=== PATIENT | male | born 1975 | race Caucasian/White ===

== ENCOUNTER 2025-08-14 06:49 | Observation (INO) ==
[2025-08-14] MEDS: APRESOLINE INJ 20 MG VIAL IVP ONE (07:14)
[2025-08-14] MEDS: NS 500 ML IV 500 ML IV ONE (07:24)
[2025-08-14] MEDS: PROTONIX INJ 40 MG VIAL IVP ONE (07:24)
[2025-08-14] MEDS: ZOFRAN INJ 4 MG VIAL IVP ONE (07:24)
[2025-08-14 07:25] LABS: MEAN PLATELET VOLUME 8.6 fL (7.4-11.0); RED CELL DISTRIBUTION WIDTH 13.4 % (11.6-16.5)
[2025-08-14 07:34] LABS: BAND NEUTROPHILS % 1 % (0-10); COR NA(FOR HYPERGLY) 141 mmol/L (136-145); CREATININE 1.46 mg/dL (0.70-1.30); PLATELET MORPHOLOGY COMMENT NORMAL (NORMAL); eGFR NON BLACK RACES 54 (>60)
[2025-08-14] MEDS: LEVSIN/MAALOX/LIDOC VISC PO ONE (07:55)
--- NOTE | 2025-08-14 08:35 | CT ---
EXAMINATION: ABDOMEN/PELVIS W/O CON HISTORY: abd pain; COMPARISON: None. TECHNIQUE: Contiguou s noncontrast axial CT images of the abdomen and pelvis. Images reviewed in the axial imaging plane with reformatted sagittal and coronal images.The above CT scan was done with automated exposure control and the mA and kV was adjusted to obtain quality images according to patient size. FINDINGS: Details of the organs are limited since intravenous contrast was not used. The liver measures 19 by 20 by 20 cm. There is diffuse fatty infiltration liver having density measurements of 34 Hounsfield units. Mild distention of the gallbladder. No bile duct dilatation. Pancreas, spleen, adrenal glands appear intact. The abdominal aorta tapers normally. The left kidney is markedly atrophic. Right kidney is normal size. No hydronephrosis. There is a 0.7 x 0.8 cm exophytic mass central density 0.3 Hounsfield units located along the posteromedial cortex midpole right kidney probable cyst. Details of the GI tract are limited since oral contrast was not used. Small and large bowels are normal caliber. Mild amount of bowel-gas and feces. No evidence of acute appendicitis. No ascites. Mild amount of food and fluid within the stomach. Small gastric hiatal hernia. Urinary bladder mildly distended with urine. Seminal vesicles and prostate appear intact. Mild multilevel spondylosis. 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 Moderate disc space narrowing at this level with vacuum disc phenomenon. Pulmonary bases are clear. IMPRESSION: Mild hepatomegaly. Diffuse fatty infiltration of the liver. Mild distention of the gallbladder. Markedly atrophic left kidney with subcentimeter low-density mass left kidney probable renal cyst. THIS IS AN ELECTRONICALLY VERIFIED FINAL REPORT 08/14/2025 8:32 AM - Electronically signed by Emily Ramirez MD
--- NOTE | 2025-08-14 09:07 | DR.EXTPAIN ---
HPI Time seen Time Seen by Provider: 08/14/25 07:04 PCP Primary Care Physician: Rita Zamora NP Complaint/Symptoms Chief Complaint Doctor Comments: Woke up from sleep around 2:30 in the morning with right upper quadrant abdominal pain. Patient states she also has had some nausea and vomiting. Denies fever. Patient states in the past she has had some similar episodes but much more mild when eating greasy foods or fried foods. Denies constipation or diarrhea or fever. Chief Complaint:: Patient reports that he woke up at 0330 with 10/10 sharp/constanst below the sternum pain. COVID-19 Coronavirus risk:travel/contact w/high risk person: No Has patient experienced Coronavirus symptoms: No Source History Provided: Patient Mode of arrival Mode of Arrival: Ambulatory Timing Onset of Chief Complaint: 08/14/25 PMH PMH Past Medical History: Yes Past Medical History: Dyslipidemia Past Surgical History: No Surgical History: No History Family History History of Family Medical Conditions: Yes Family Medical History: Cancer Social History Type of Tobacco Use: Cigarettes Alcohol Use: None Do you use any recreational Drugs:: No Lives With: Spouse Lives Where: Home Travel Risk Coronavirus risk:travel/contact w/high risk person: No Has patient experienced Coronavirus symptoms: No Infectious screening Have you traveled outside the country in the last 6 months?: No Isolation: Standard ROS Review of Systems Constitutional: No Symptoms Reported Eyes: No Symptoms Reported ENTM: No Symptoms Reported Respiratoy: No Symptoms Reported Cardiovascular: No Symptoms Reported Gastrointestinal/Abdominal: See HPI Genitourinary: No Symptoms Reported Neurological: No Symptoms Reported Musculoskeletal: No Symptoms Reported Integumentary: No Symptoms Reported Hematologic/Lymphatic: No Symptoms Reported Endocrine: No Symptoms Reported Psychiatric: No Symptoms Reported All Other Systems: Reviewed and Negative PE Vital Signs Vitals: Vital Signs Temperature 98.9 F Pulse Rate 56 Pulse Rate 58 Pulse Rate 80 Pulse Rate 55 Pulse Rate 53 Pulse Rate 51 Pulse Rate 50 Pulse Rate 51 Pulse Rate 50 Respiratory Rate 28 Respiratory Rate 25 Respiratory Rate 17 Respiratory Rate 19 Respiratory Rate 18 Respiratory Rate 20 Respiratory Rate 19 Respiratory Rate 18 Respiratory Rate 18 Respiratory Rate 20 Blood Pressure 199/93 Blood Pressure 193/95 Blood Pressure 184/93 Blood Pressure 205/96 Blood Pressure 205/102 Blood Pressure 224/101 Blood Pressure 217/107 Blood Pressure 221/105 Blood Pressure 211/99 O2 Sat by Pulse Oximetry 100 O2 Sat by Pulse Oximetry 100 O2 Sat by Pulse Oximetry 100 O2 Sat by Pulse Oximetry 100 O2 Sat by Pulse Oximetry 100 O2 Sat by Pulse Oximetry 100 O2 Sat by Pulse Oximetry 100 O2 Sat by Pulse Oximetry 100 O2 Sat by Pulse Oximetry 100 General Limitations: No Limitations General Appearance: Alert and In No Apparent Distress Head Head Exam: Normal Inspection Eyes Eye exam: Normal Appearance ENT ENT Exam: Normal Exam Neck Neck Exam: Normal Inspection Chest Chest Inspection: Normal Inspection Respiratory Respiratory Exam: Normal Lung Sounds Bilat Cardiovascular Cardiovascular Exam: Regular Rate and Normal Rhythm Abdominal Exam Abdominal Exam: Normal Inspection, Normal Bowel Sounds, Soft, Tenderness (Right upper quadrant) and Guarding; negative Distention, Rebound, Rigidity, Organomegaly or Ascites Extremities Extremities Exam: Normal Inspection Back Back Exam: Normal Inspection Neurological Neurological Exam: Alert, Oriented X3 and CN II-XII Intact Psychiatric Psychiatric Exam: Normal Affect and Normal Mood Skin Skin Exam: Warm, Dry, Intact and Normal Color COURSE Treatment Treatment: Discussed results of workup with patient and family. Dr. Montoya, surgeon, came to the ER and evaluated patient and did not recommend admission and possible surgical intervention. Consultation Called: 09:15 Consultation Comments: Discussed case with Dr. Murry and she is agreeable to admission [facility]OR Labs Reviewed 08/14/25 07:13 08/14/25 07:13 Laboratory: WBC 19.7 X10^3/uL (3.6-10.0) H 08/14/25 07:13 RBC 5.28 X10^6/uL (4.7-6.0) 08/14/25 07:13 Hgb 16.1 g/dL (13.5-18.0) 08/14/25 07:13 Hct 47.2 % (42.0-54.0) 08/14/25 07:13 MCV 89.4 fL (80.0-100.0) 08/14/25 07:13 MCH 30.6 pg (27.0-34.0) 08/14/25 07:13 MCHC 34.2 g/dL (33.0-35.0) 08/14/25 07:13 RDW 13.4 % (11.6-16.5) 08/14/25 07:13 Plt Count 333 X10^3/uL (150.0-450.0) 08/14/25 07:13 Plt Count Comment Adequate (ADEQUATE) 08/14/25 07:13 MPV 8.6 fL (7.4-11.0) 08/14/25 07:13 Neut % (Auto) 85.6 % (42.0-75.0) H 08/14/25 07:13 Lymph % (Auto) 9.0 % (21.0-51.0) L 08/14/25 07:13 [place] % (Auto) 3.4 % (0.0-13.0) 08/14/25 07:13 Eos % (Auto) 1.3 % (0.9-2.9) 08/14/25 07:13 Baso % (Auto) 0.7 % (0.2-1.0) 08/14/25 07:13 Neut # (Auto) 16.9 x10^3/uL (2.2-4.8) H 08/14/25 07:13 Lymph # (Auto) 1.8 X10^3/uL (1.3-2.9) 08/14/25 07:13 [place] # (Auto) 0.7 x10^3/uL (0.3-0.8) 08/14/25 07:13 Eos # (Auto) 0.3 x10^3/uL (0.0-0.2) H 08/14/25 07:13 Baso # (Auto) 0.1 X10^3/uL (0.0-0.1) 08/14/25 07:13 Absolute Nucleated RBC 0.3 /100WBC 08/14/25 07:13 Total Counted 100 08/14/25 07:13 Neutrophils % (Manual) 85 % (39-76) H 08/14/25 07:13 Band Neutrophils % 1 % (0-10) 08/14/25 07:13 Lymphocytes % (Manual) 13 % (13-43) 08/14/25 07:13 Monocytes % (Manual) 1 % (4-9) L 08/14/25 07:13 Plt Morphology Comment Normal (NORMAL) 08/14/25 07:13 RBC Morphology Normal (NORMAL) 08/14/25 07:13 Sodium 140 mmol/L (136-145) 08/14/25 07:13 Corrected Sodium 141 mmol/L (136-145) 08/14/25 07:13 Potassium 3.9 mmol/L (3.5-5.1) 08/14/25 07:13 Chloride 103 mmol/L (98-107) 08/14/25 07:13 Carbon Dioxide 26.0 mmol/L (21-32) 08/14/25 07:13 BUN 13 mg/dL (7-18) 08/14/25 07:13 Creatinine 1.46 mg/dL (0.70-1.30) H 08/14/25 07:13 Est GFR (MDRD) Af Amer > 60 (>60) 08/14/25 07:13 Est GFR (MDRD) Non-Af 54 (>60) L 08/14/25 07:13 Glucose 129 mg/dL (65-99) H 08/14/25 07:13 Calcium 9.3 mg/dL (8.5-10.1) 08/14/25 07:13 Corrected Calcium TNP 08/14/25 07:13 Magnesium 1.9 mg/dL (2.0-2.9) L 08/14/25 07:13 Total Bilirubin 0.20 mg/dL (0.2-1.0) 08/14/25 07:13 AST 23 Units/L (15-37) 08/14/25 07:13 ALT 33 Units/L (12-78) 08/14/25 07:13 Alkaline Phosphatase 96 Units/L (46-116) 08/14/25 07:13 Total Protein 7.5 g/dL (6.4-8.2) 08/14/25 07:13 Albumin 3.8 g/dL (3.4-5.0) 08/14/25 07:13 Globulin 3.7 g/dL (2.5-4.5) 08/14/25 07:13 Albumin/Globulin Ratio 1.0 Ratio (1.1-2.1) L 08/14/25 07:13 Amylase 84 Units/L (25-115) 08/14/25 07:13 Lipase 46 Units/L (16-77) 08/14/25 07:13 Opioid Opioid Risk Tool Age (Bill box if 16-45): No History of Preadolescent Sexual Abuse: No Total: 0 Total Score Risk Category: Low Risk Copyright: Antwon GUADARRAMA predicting aberrant behaviors Discharge Plan Diagnosis Discharge Problem: Cholecystitis Discharge Plan Patient Disposition: ADMITTED INPATIENT Condition: Stable Prescriptions: No Action fenofibrate nanocrystallized 145 mg tablet 145 mg PO QDAY Health Concerns: Post Hospitalization: new medications and changes needed to prevent readmission or further decline. Pt educated and given instructions on all concerns. Plan of Treatment: Continue with present treatment and follow up plan. Pt is to keep follow up appointment as instructed and take medications as ordered. Orders to Discharge Patient Discharge Orders: Transfer (Routine); Ordered 08/14/25 Ordered By: Emanuel Alvarez Follow ups/Referrals Follow ups/Referrals: RITA ZAMORA [Primary Care Provider, Unknown] - 3 days Instructions Stand Alone Forms: Find Help Web Site, Post Hospital Follow Up Care Print Language: TURKMEN
--- NOTE | 2025-08-14 09:15 | EKG ---
Test Reason : Pre-op, Gallbladder Blood Pressure : */* mmHG Vent. Rate : 49 BPM Atrial Rate : 49 BPM P-R Int : 154 ms QRS Dur : 96 ms QT Int : 468 ms P-R-T Axes : 71 104 64 degrees QTc Int : 422 ms Sinus bradycardia Rightward axis Borderline ECG No previous ECGs available Confirmed by Huan Hdez MD ([id number]) on 08/15/2025 7:28:35 AM Referred By: Confirmed By: Huan Hdez MD
[2025-08-14 09:17] LABS: INR 1.01 (0.8-1.3)
[2025-08-14] MEDS: LEVAQUIN PREMIX IV 500 MG 500 MG/100 ML BAG IV SCH (09:17)
[2025-08-14] MEDS: DILAUDID INJ IVP ONE (09:17)
[2025-08-14] MEDS: NS 1,000 ML IV 1,000 ML IV SCH ×2 (09:17→14:07)
[2025-08-14] MEDS: DUONEB 0.5 MG/3 MG (3 mL) NEB ONE ×2 (09:18→14:09)
[2025-08-14] MEDS ORDERED: ULTANE GAS IN ONE (09:20)
[2025-08-14] MEDS ORDERED: KETAMINE HCL ONE (09:20)
[2025-08-14] MEDS ORDERED: PRECEDEX INJ VIAL ONE (09:20)
--- NOTE | 2025-08-14 10:16 | RAD ---
EXAM: Portable chest HISTORY: Right upper quadrant pain COMPARISON: 04/28/2025 FINDINGS: Heart size is normal. Anne-Marie are normal. Lung jason are clear. No pleural effusion or pneumothorax identified. Bony thorax is unremarkable. IMPRESSION: No significant abnormality identified THIS IS AN ELECTRONICALLY VERIFIED FINAL REPORT 08/14/2025 10:03 AM - Electronically signed by Roel Smith MD
--- NOTE | 2025-08-14 10:44 | US ---
EXAM: Ultrasound gallbladder HISTORY: Right upper quadrant pain, abnormal CT TECHNIQUE: Multiple grayscale sonographic images were obtained. COMPARISON: CT abdomen pelvis same date FINDINGS: Right kidney measured low a her home I gas Divina partner no near x-ray okay okay are no gut meet left over right Liver is normal in size and configuration and without cyst, mass, or biliary ductal dilatation. Portal venous blood flow was hepatopetal. Hepatic artery was patent. Hepatic venous blood flow was hepatofugal gallbladder is somewhat distended. Gallbladder wall thickness was normal. Common duct measured 3.6 mm. There is a stone present in the neck of the gallbladder. Best visualized on image 24 is a polypoid density within the gallbladder wall measuring 11.5 mm. This could represent a large polyp however neoplasm not excluded and follow-up sonographic evaluation of the gallbladder is recommended in 6 months if the patient does not undergo cholecystectomy at this time. Right kidney measured 13.2 cm in length and was unobstructed. Cortical thickness and cortical echogenicity are normal. No stones masses or perinephric fluid collections identified. FINDINGS: See above IMPRESSION: Cholelithiasis as described above without evidence for cholecystitis Left 0.5 mm gallbladder mucosal polyp/mass possibly a large polyp however small neoplasm not excluded. Follow-up gallbladder sonography in 6 months is recommended if the patient does not undergo cholecystectomy at this time. THIS IS AN ELECTRONICALLY VERIFIED FINAL REPORT 08/14/2025 10:40 AM - Electronically signed by Roel Smith MD
[2025-08-14] MEDS ORDERED: BENADRYL INJ 50 MG VIAL IVP PRN (11:19)
[2025-08-14] MEDS ORDERED: ZOFRAN INJ 4 MG VIAL IVP PRN ×2 (11:19→11:37)
[2025-08-14] MEDS ORDERED: BARHEMSYS INJ IVP PRN (11:19)
[2025-08-14] MEDS ORDERED: DILAUDID INJ IVP PRN (11:19)
[2025-08-14] MEDS: VERSED ONE (11:21)
[2025-08-14] MEDS: FENTANYL VIAL INJ 100 mcg ONE (11:21)
[2025-08-14] MEDS: OFIRMEV IV 1000 MG VIAL 1,000 MG/100 ML VIAL IV ONE (11:22)
[2025-08-14] MEDS: DIPRIVAN VIAL 20 ML ONE (11:22)
[2025-08-14] MEDS: REGLAN INJ 10 MG VIAL ONE (11:22)
[2025-08-14] MEDS: BRIDION ONE (11:22)
[2025-08-14] MEDS: ZEMURON 100 MG VIAL ONE (11:22)
[2025-08-14] MEDS: ZOFRAN INJ 4 MG VIAL ONE (11:22)
[2025-08-14] MEDS: PEPCID 20 MG VIAL ONE (11:29)
[2025-08-14] MEDS ORDERED: MORPHINE SULFATE INJ 2 MG INJ IVP PRN (11:37)
[2025-08-14 11:48] VITALS: BMI 28.8
[2025-08-14] MEDS: BACTROBAN TOPICAL OINT ONE (12:18)
[2025-08-14] MEDS: MARCAINE 0.5% ONE (12:18)
[2025-08-14] MEDS: TORADOL 30 MG VIAL ONE (12:18)
[2025-08-14] MEDS: EPHEDRINE SULFATE INJ ONE (12:45)
[2025-08-14] MEDS: MAGNESIUM SULFATE 1 GRAM/100 mL PREMIX 1 G/100 ML BAG IV SCH (13:00)
[2025-08-14] MEDS: LEVSIN/MAALOX/LIDOC VISC ONE (14:08)
[2025-08-14] MEDS: PROTONIX INJ 40 MG VIAL ONE (14:08)
[2025-08-14] MEDS: CONSULT PHARMACY - POTASSIUM & MAGNESIUM XX SCH (14:09)
[2025-08-14] MEDS: NS 1,000 ML IV 1,000 ML ONE (14:09)
--- NOTE | 2025-08-14 14:11 | DR.H&P ---
H&P History & Physical for Day of: H&P Date: 08/14/25 Chief Complaint Chief Complaint: abdominal pain, nausea History of Present Illness History of Present Illness: Patient is a 49-year-old male with a past medical history of hyperlipidemia presented with right upper quadrant pain that started early this morning. He reports associated nausea. He did have a high- fat/greasy meal last night. ER workup included labs which showed elevated WBC, CTAP showed mild distention of gallbladder and fatty liver. He was treated with IV fluids, pain control and IV antibiotics. Dr. Jane was also consulted and recommended gallbladder ultrasound. Patient will likely be taken for cholecystectomy later today. He will be admitted for further management. Patient states that he has had some intermittent abdominal pain after eating greasy food in the past but it has not been as severe as it was today. He has never been hospitalized for gallstones. He does have a history of smoking. Labs/imaging reviewed: - WBC 19.7 hemoglobin 16.1 platelet 333 creatinine 1.46 glucose 129 - CTAP reviewed - Gallbladder ultrasound reviewed - Chest x-ray: No acute changes Plan: Admit patient to [facility], continue pain control and fluids. Continue IV antibiotics. N.p.o. status. Follow surgery recommendations. Replace electrolytes as per protocol. Monitor a.m. labs and imaging. Time spent for clinical assessment, reviewing labs and imaging, physical exam and documentation greater than 45 minutes. Past Medical History Past Medical History: Dyslipidemia Past Surgical History Surgical History: No History Family History Family Medical History: Cancer Social History Does patient currently use any type of tobacco product: Yes Type of Tobacco Use: Cigarettes How many years tobacco product used: 10 Does any household member use tobacco: No Alcohol Use: Rarely Drug Use: None Medications Home Medications: Home Medications Medication Instructions Recorded Confirmed Type fenofibrate nanocrystallized 145 145 mg PO QDAY 08/14/25 History mg tablet aspirin 81 mg chewable tablet 81 mg PO QDAY 08/14/25 0 08/14/25 History Allergies Allergies Allergy/AdvReac Type Severity Reaction Status Date / Time No Known Drug Allergies Allergy Verified 08/14/25 07:01 Labs 08/14/25 07:13 08/14/25 07:13 Labs: Laboratory WBC 19.7 X10^3/uL (3.6-10.0) H 08/14/25 07:13 RBC 5.28 X10^6/uL (4.7-6.0) 08/14/25 07:13 Hgb 16.1 g/dL (13.5-18.0) 08/14/25 07:13 Hct 47.2 % (42.0-54.0) 08/14/25 07:13 MCV 89.4 fL (80.0-100.0) 08/14/25 07:13 MCH 30.6 pg (27.0-34.0) 08/14/25 07:13 MCHC 34.2 g/dL (33.0-35.0) 08/14/25 07:13 RDW 13.4 % (11.6-16.5) 08/14/25 07:13 Plt Count 333 X10^3/uL (150.0-450.0) 08/14/25 07:13 Plt Count Comment Adequate (ADEQUATE) 08/14/25 07:13 MPV 8.6 fL (7.4-11.0) 08/14/25 07:13 Neut % (Auto) 85.6 % (42.0-75.0) H 08/14/25 07:13 Lymph % (Auto) 9.0 % (21.0-51.0) L 08/14/25 07:13 [place] % (Auto) 3.4 % (0.0-13.0) 08/14/25 07:13 Eos % (Auto) 1.3 % (0.9-2.9) 08/14/25 07:13 Baso % (Auto) 0.7 % (0.2-1.0) 08/14/25 07:13 Neut # (Auto) 16.9 x10^3/uL (2.2-4.8) H 08/14/25 07:13 Lymph # (Auto) 1.8 X10^3/uL (1.3-2.9) 08/14/25 07:13 [place] # (Auto) 0.7 x10^3/uL (0.3-0.8) 08/14/25 07:13 Eos # (Auto) 0.3 x10^3/uL (0.0-0.2) H 08/14/25 07:13 Baso # (Auto) 0.1 X10^3/uL (0.0-0.1) 08/14/25 07:13 Absolute Nucleated RBC 0.3 /100WBC 08/14/25 07:13 Total Counted 100 08/14/25 07:13 Neutrophils % (Manual) 85 % (39-76) H 08/14/25 07:13 Band Neutrophils % 1 % (0-10) 08/14/25 07:13 Lymphocytes % (Manual) 13 % (13-43) 08/14/25 07:13 Monocytes % (Manual) 1 % (4-9) L 08/14/25 07:13 Plt Morphology Comment Normal (NORMAL) 08/14/25 07:13 RBC Morphology Normal (NORMAL) 08/14/25 07:13 PT 13.4 SECONDS (11.8-14.3) 08/14/25 07:13 INR Target Range - 08/14/25 07:13 INR 1.01 (0.8-1.3) 08/14/25 07:13 APTT 29.4 SECONDS (22.9-36.5) 08/14/25 07:13 PTT Comment - 08/14/25 07:13 Sodium 140 mmol/L (136-145) 08/14/25 07:13 Corrected Sodium 141 mmol/L (136-145) 08/14/25 07:13 Potassium 3.9 mmol/L (3.5-5.1) 08/14/25 07:13 Chloride 103 mmol/L (98-107) 08/14/25 07:13 Carbon Dioxide 26.0 mmol/L (21-32) 08/14/25 07:13 BUN 13 mg/dL (7-18) 08/14/25 07:13 Creatinine 1.46 mg/dL (0.70-1.30) H 08/14/25 07:13 Est GFR (MDRD) Af Amer > 60 (>60) 08/14/25 07:13 Est GFR (MDRD) Non-Af 54 (>60) L 08/14/25 07:13 Glucose 129 mg/dL (65-99) H 08/14/25 07:13 Calcium 9.3 mg/dL (8.5-10.1) 08/14/25 07:13 Corrected Calcium TNP 08/14/25 07:13 Magnesium 1.9 mg/dL (2.0-2.9) L 08/14/25 07:13 Total Bilirubin 0.20 mg/dL (0.2-1.0) 08/14/25 07:13 AST 23 Units/L (15-37) 08/14/25 07:13 ALT 33 Units/L (12-78) 08/14/25 07:13 Alkaline Phosphatase 96 Units/L (46-116) 08/14/25 07:13 Total Protein 7.5 g/dL (6.4-8.2) 08/14/25 07:13 Albumin 3.8 g/dL (3.4-5.0) 08/14/25 07:13 Globulin 3.7 g/dL (2.5-4.5) 08/14/25 07:13 Albumin/Globulin Ratio 1.0 Ratio (1.1-2.1) L 08/14/25 07:13 Amylase 84 Units/L (25-115) 08/14/25 07:13 Lipase 46 Units/L (16-77) 08/14/25 07:13 Review of Systems Constitutional: No Symptoms Reported Eyes: No Symptoms Reported ENT: No Symptoms Reported Respiratory: No Symptoms Reported Cardiovascular: No Symptoms Reported Gastrointestinal: Nausea and Abdominal Pain Genitourinary: No Symptoms Reported Musculoskeletal: No Symptoms Reported Skin: No Symptoms Reported Neurological: No Symptoms Reported Physical Exam Vital Signs: Vital Signs Temperature 98.9 F Pulse Rate 53 Pulse Rate 51 Pulse Rate 72 Pulse Rate 54 Pulse Rate 61 Pulse Rate 56 Pulse Rate 58 Pulse Rate 80 Pulse Rate 55 Pulse Rate 53 Pulse Rate 51 Pulse Rate 50 Pulse Rate 51 Pulse Rate 50 Respiratory Rate 18 Respiratory Rate 20 Respiratory Rate 19 Respiratory Rate 16 Respiratory Rate 28 Respiratory Rate 28 Respiratory Rate 34 Respiratory Rate 21 Respiratory Rate 28 Respiratory Rate 25 Respiratory Rate 17 Respiratory Rate 19 Respiratory Rate 18 Respiratory Rate 20 Respiratory Rate 19 Respiratory Rate 18 Respiratory Rate 18 Respiratory Rate 20 Blood Pressure 172/88 Blood Pressure 177/85 Blood Pressure 164/85 Blood Pressure 187/93 Blood Pressure 185/94 Blood Pressure 199/93 Blood Pressure 193/95 Blood Pressure 184/93 Blood Pressure 205/96 Blood Pressure 205/102 Blood Pressure 224/101 Blood Pressure 217/107 Blood Pressure 221/105 Blood Pressure 211/99 O2 Sat by Pulse Oximetry 97 O2 Sat by Pulse Oximetry 99 O2 Sat by Pulse Oximetry 99 O2 Sat by Pulse Oximetry 100 O2 Sat by Pulse Oximetry 100 O2 Sat by Pulse Oximetry 100 O2 Sat by Pulse Oximetry 100 O2 Sat by Pulse Oximetry 100 O2 Sat by Pulse Oximetry 100 O2 Sat by Pulse Oximetry 100 O2 Sat by Pulse Oximetry 100 O2 Sat by Pulse Oximetry 100 O2 Sat by Pulse Oximetry 100 O2 Sat by Pulse Oximetry 100 Oriented: Normal Respiratory: Clear Throughout Cardiovascular: Normal Auscultation: Bowel Sounds: Normal Tenderness: RUQ and Moderate Skin: Normal Musculoskeletal: Normal Psychiatric: Normal Mood Description: Calm Affect: Normal Speech Pattern: Clear and Appropriate Assessment/Plan (1) Cholelithiasis: Qualifiers: Cholelithiasis location: gallbladder Cholecystitis presence: without cholecystitis Biliary obstruction: without biliary obstruction Qualified Code(s): K80.20 - Calculus of gallbladder without cholecystitis without obstruction Status: Acute (2) Gallbladder polyp: Status: Acute (3) MU (acute kidney injury): Status: Acute (4) Dehydration: Status: Acute Review H&P Reviewed: Yes Patient was examined?: Yes
[2025-08-14] MEDS ORDERED: ULTRAM PO PRN (18:04)
[2025-08-14 19:18] LABS: BLOOD/HEMOGLOBIN,URINE NEGATIVE (NEGATIVE); LEUKOCYTE ESTERASE ,URINE NEGATIVE (NEGATIVE); NITRITES,URINE NEGATIVE (NEGATIVE)
[2025-08-14 19:33] LABS: APPEARANCE,URINE CLEAR (CLEAR)
[2025-08-14 19:34] LABS: HYALINE CASTS, URINE FEW /LPF (NEGATIVE); SQUAMOUS EPITHELIAL CELL,UR FEW /HPF (NEGATIVE)
[2025-08-14] MEDS: MORPHINE SULFATE INJ 2 MG INJ IVP PRN (19:49)
[2025-08-15 00:01] VITALS: O2SAT 96
[2025-08-15 05:07] LABS: MEAN PLATELET VOLUME 9.2 fL (7.4-11.0); RED CELL DISTRIBUTION WIDTH 13.2 % (11.6-16.5)
[2025-08-15 05:20] LABS: COR CA(FOR HYPOALB) 8.8 mg/dL (8.5-10.1); CREATININE 1.27 mg/dL (0.70-1.30); eGFR NON BLACK RACES > 60 (>60)
[2025-08-15 07:34] VITALS: BP 128/61; PULSE 60; TEMP 98.3
[2025-08-15 07:40] VITALS: RESP 18
--- NOTE | 2025-08-15 09:35 | DR.PROGNOT ---
HOSPITAL PROGRESS NOTE Progress Note for Day of: Progress Note Date: 08/15/25 Chief Complaint Chief Complaint: Patient is doing very well today with moderate incisional pain. He is status post laparoscopic cholecystectomy for acute cholecystitis and hydrops of the gallbladder with adhesions. White count still elevated at 18.7. Liver enzymes, BUN/creatinine are normal. Stable vital signs and the abdomen is soft and flat with moderate diffuse tenderness on the right side of the abdomen which is expected. Minimal drainage in the JAMILA The rest of his systemic review and examination is the same as before. Past Medical Family Social History Past Med/Fam/Surg Hx: No changes since H&P and Changes noted (describe) Allergies: Allergies No Known Drug Allergies Allergy (Verified 08/14/25 07:01) Vital Signs Vital Signs: Vital Signs Temperature 98.3 F Temperature 99.0 F Pulse Rate [Left Radial] 60 Pulse Rate [Left Radial] 58 Respiratory Rate 18 Respiratory Rate 19 Respiratory Rate 18 Respiratory Rate 17 Respiratory Rate 20 Blood Pressure [Left Arm] 128/61 Blood Pressure [Left Arm] 115/57 O2 Sat by Pulse Oximetry 96 O2 Sat by Pulse Oximetry 96 Physical Exam Oriented: Normal Cardiovascular: Normal GI:Auscultation: Normal GI: Tenderness: RUQ and Moderate Skin: Normal Musculoskeletal: Normal Psychiatric: Normal Mood Description: Calm Affect: Normal Speech Pattern: Clear and Appropriate Laboratory and Diagnostics 08/15/25 04:40 08/15/25 04:40 Labs: Laboratory WBC 18.7 X10^3/uL (3.6-10.0) H 08/15/25 04:40 RBC 4.57 X10^6/uL (4.7-6.0) L 08/15/25 04:40 Hgb 14.1 g/dL (13.5-18.0) D 08/15/25 04:40 Hct 41.1 % (42.0-54.0) L 08/15/25 04:40 MCV 89.8 fL (80.0-100.0) 08/15/25 04:40 MCH 30.8 pg (27.0-34.0) 08/15/25 04:40 MCHC 34.3 g/dL (33.0-35.0) 08/15/25 04:40 RDW 13.2 % (11.6-16.5) 08/15/25 04:40 Plt Count 287 X10^3/uL (150.0-450.0) 08/15/25 04:40 Plt Count Comment Adequate (ADEQUATE) 08/14/25 07:13 MPV 9.2 fL (7.4-11.0) 08/15/25 04:40 Neut % (Auto) 75.0 % (42.0-75.0) 08/15/25 04:40 Lymph % (Auto) 17.9 % (21.0-51.0) L 08/15/25 04:40 [place] % (Auto) 5.8 % (0.0-13.0) 08/15/25 04:40 Eos % (Auto) 0.7 % (0.9-2.9) L 08/15/25 04:40 Baso % (Auto) 0.6 % (0.2-1.0) 08/15/25 04:40 Neut # (Auto) 14.1 x10^3/uL (2.2-4.8) H 08/15/25 04:40 Lymph # (Auto) 3.3 X10^3/uL (1.3-2.9) H 08/15/25 04:40 [place] # (Auto) 1.1 x10^3/uL (0.3-0.8) H 08/15/25 04:40 Eos # (Auto) 0.1 x10^3/uL (0.0-0.2) 08/15/25 04:40 Baso # (Auto) 0.1 X10^3/uL (0.0-0.1) 08/15/25 04:40 Absolute Nucleated RBC 0.1 /100WBC 08/15/25 04:40 Total Counted 100 08/14/25 07:13 Neutrophils % (Manual) 85 % (39-76) H 08/14/25 07:13 Band Neutrophils % 1 % (0-10) 08/14/25 07:13 Lymphocytes % (Manual) 13 % (13-43) 08/14/25 07:13 Monocytes % (Manual) 1 % (4-9) L 08/14/25 07:13 Plt Morphology Comment Normal (NORMAL) 08/14/25 07:13 RBC Morphology Normal (NORMAL) 08/14/25 07:13 PT 13.4 SECONDS (11.8-14.3) 08/14/25 07:13 INR Target Range - 08/14/25 07:13 INR 1.01 (0.8-1.3) 08/14/25 07:13 APTT 29.4 SECONDS (22.9-36.5) 08/14/25 07:13 PTT Comment - 08/14/25 07:13 Sodium 142 mmol/L (136-145) 08/15/25 04:40 Corrected Sodium TNP 08/15/25 04:40 Potassium 4.2 mmol/L (3.5-5.1) 08/15/25 04:40 Chloride 108 mmol/L (98-107) H 08/15/25 04:40 Carbon Dioxide 26.5 mmol/L (21-32) 08/15/25 04:40 BUN 9 mg/dL (7-18) 08/15/25 04:40 Creatinine 1.27 mg/dL (0.70-1.30) 08/15/25 04:40 Est GFR (MDRD) Af Amer > 60 (>60) 08/15/25 04:40 Est GFR (MDRD) Non-Af > 60 (>60) 08/15/25 04:40 Glucose 94 mg/dL (65-99) 08/15/25 04:40 Calcium 7.9 mg/dL (8.5-10.1) L 08/15/25 04:40 Corrected Calcium 8.8 mg/dL (8.5-10.1) 08/15/25 04:40 Magnesium 1.9 mg/dL (2.0-2.9) L 08/15/25 04:40 Total Bilirubin 0.60 mg/dL (0.2-1.0) 08/15/25 04:40 AST 48 Units/L (15-37) H 08/15/25 04:40 ALT 45 Units/L (12-78) 08/15/25 04:40 Alkaline Phosphatase 67 Units/L (46-116) 08/15/25 04:40 Total Protein 6.0 g/dL (6.4-8.2) L 08/15/25 04:40 Albumin 2.9 g/dL (3.4-5.0) L 08/15/25 04:40 Globulin 3.1 g/dL (2.5-4.5) 08/15/25 04:40 Albumin/Globulin Ratio 0.9 Ratio (1.1-2.1) L 08/15/25 04:40 Amylase 84 Units/L (25-115) 08/14/25 07:13 Lipase 46 Units/L (16-77) 08/14/25 07:13 Specimen Type Clean catch urine 08/14/25 18:54 Urine Color Yellow (YELLOW) 08/14/25 18:54 Urine Appearance Clear (CLEAR) 08/14/25 18:54 Urine pH 6.0 (5.0 - 8.0) 08/14/25 18:54 Ur Specific [place] 1.020 (1.000-1.030) 08/14/25 18:54 Urine Protein 2+ (NEGATIVE) 08/14/25 18:54 Urine Glucose (UA) Negative (NEGATIVE) 08/14/25 18:54 Urine Ketones Negative (NEGATIVE) 08/14/25 18:54 Urine Blood Negative (NEGATIVE) 08/14/25 18:54 Urine Nitrite Negative (NEGATIVE) 08/14/25 18:54 Urine Bilirubin Negative (NEGATIVE) 08/14/25 18:54 Urine Urobilinogen Normal (NORMAL) 08/14/25 18:54 Ur Leukocyte Esterase Negative (NEGATIVE) 08/14/25 18:54 Urine RBC 0-2 /HPF (0-3) 08/14/25 18:54 Urine WBC 0-2 /HPF (0-5) 08/14/25 18:54 Ur Squamous Epith Cells Few /HPF (NEGATIVE) 08/14/25 18:54 Urine Bacteria Negative /HPF (NEGATIVE) 08/14/25 18:54 Hyaline Casts Few /LPF (NEGATIVE) 08/14/25 18:54 Granular Casts Rare /LPF (NEGATIVE) 08/14/25 18:54 Ur Culture Indicated? No/not indicated 08/14/25 18:54 Assessment and Plan 1: Status post laparoscopic cholecystectomy and lysis of adhesions. Patient could be discharged on Cipro 500 mg twice a day for 1 more week, [place] 5 every 4 hours as needed Follow-up in 10 days. Problem Patient Problems: Patient Problems Cholecystitis (Acute) K81.9
--- NOTE | 2025-08-20 11:39 | W.DIS.FURT ---
Summary of Discharge Discharge Summary of Date Date of Exam: 08/15/25 Admission Date Date of Admission: 08/14/25 Admission Diagnosis Patient Problems (Updated 08/14/25 @ 14:11 by Urszula Murry MD) Cholecystitis (Acute) K81.9 Hospital Course: Patient is a 49-year-old male with a past medical history of hyperlipidemia presented with right upper quadrant pain that started early this morning. He reports associated nausea. He did have a high-fat/greasy meal last night. ER workup included labs which showed elevated WBC, CTAP showed mild distention of gallbladder and fatty liver. He was treated with IV fluids, pain control and IV antibiotics. Dr. Jane was also consulted and recommended gallbladder ultrasound. Ultrasound showed cholelithiasis and gallbladder polyp. Patient was taken for cholecystectomy, tolerated well. His labs are monitored daily and electrolytes replaced as needed. He was tolerating p.o. intake and pain was well-controlled. JAMILA drain was removed and patient was stable for discharge. He will follow-up with PCP and Dr. Jane as scheduled. Vital Signs: Vital Signs (72 hours) 08/14/25 06:57 08/14/25 07:00 08/14/25 07:16 Temperature 98.9 F Pulse Rate 50 L 51 L 50 L Pulse Rate [Left Radial] Respiratory Rate 20 18 18 Blood Pressure 211/99 221/105 217/107 Blood Pressure [Left Arm] O2 Sat by Pulse Oximetry 100 100 100 Oxygen Delivery Method Room Air Oxygen Flow Rate FIO2% 08/14/25 07:18 08/14/25 07:21 08/14/25 07:55 Temperature Pulse Rate 51 L 53 L Pulse Rate [Left Radial] Respiratory Rate 19 20 18 Blood Pressure 224/101 205/102 Blood Pressure [Left Arm] O2 Sat by Pulse Oximetry 100 100 Oxygen Delivery Method Oxygen Flow Rate FIO2% 08/14/25 07:57 08/14/25 08:07 08/14/25 08:15 Temperature Pulse Rate 55 L 80 58 L Pulse Rate [Left Radial] Respiratory Rate 19 17 25 H Blood Pressure 205/96 184/93 193/95 Blood Pressure [Left Arm] O2 Sat by Pulse Oximetry 100 100 100 Oxygen Delivery Method Oxygen Flow Rate FIO2% 08/14/25 08:46 08/14/25 09:00 08/14/25 09:15 Temperature Pulse Rate 56 L 61 54 L Pulse Rate [Left Radial] Respiratory Rate 28 H 21 34 H Blood Pressure 199/93 185/94 187/93 Blood Pressure [Left Arm] O2 Sat by Pulse Oximetry 100 100 100 Oxygen Delivery Method Oxygen Flow Rate FIO2% 08/14/25 09:17 08/14/25 09:29 08/14/25 09:30 Temperature Pulse Rate 72 Pulse Rate [Left Radial] Respiratory Rate 28 H 28 H 16 Blood Pressure 164/85 Blood Pressure [Left Arm] O2 Sat by Pulse Oximetry 99 Oxygen Delivery Method Oxygen Flow Rate FIO2% 08/14/25 09:45 08/14/25 09:47 08/14/25 11:00 Temperature Pulse Rate 51 L Pulse Rate [Left Radial] Respiratory Rate 19 28 H 20 Blood Pressure 177/85 Blood Pressure [Left Arm] O2 Sat by Pulse Oximetry 99 Oxygen Delivery Method Oxygen Flow Rate FIO2% 08/14/25 11:00 08/14/25 11:44 08/14/25 13:21 Temperature 97.2 F L Pulse Rate 53 L 92 H Pulse Rate [Left Radial] Respiratory Rate 18 18 Blood Pressure 172/88 99/57 Blood Pressure [Left Arm] O2 Sat by Pulse Oximetry 97 97 Oxygen Delivery Method Room Air Room Air Aerosol Face Tent Oxygen Flow Rate FIO2% 08/14/25 13:26 08/14/25 13:31 08/14/25 13:36 Temperature Pulse Rate 89 88 89 Pulse Rate [Left Radial] Respiratory Rate 18 18 18 Blood Pressure 103/58 103/56 106/55 Blood Pressure [Left Arm] O2 Sat by Pulse Oximetry 100 100 100 Oxygen Delivery Method Aerosol Face Tent Aerosol Face Tent Aerosol Face Tent Oxygen Flow Rate FIO2% 08/14/25 13:41 08/14/25 13:46 08/14/25 13:51 Temperature Pulse Rate 91 H 91 H 88 Pulse Rate [Left Radial] Respiratory Rate 18 18 18 Blood Pressure 106/58 101/53 96/55 Blood Pressure [Left Arm] O2 Sat by Pulse Oximetry 98 98 97 Oxygen Delivery Method Nasal Cannula Nasal Cannula Room Air Oxygen Flow Rate FIO2% 08/14/25 14:00 08/14/25 14:00 08/14/25 14:15 Temperature 97.4 F L 97.4 F L Pulse Rate Pulse Rate [Left Radial] 92 H 80 Respiratory Rate 18 18 Blood Pressure Blood Pressure [Left Arm] 97/54 91/51 O2 Sat by Pulse Oximetry 96 97 Oxygen Delivery Method Nasal Cannula Nasal Cannula Nasal Cannula Oxygen Flow Rate 2 2 2 FIO2% 28 08/14/25 14:30 08/14/25 14:45 08/14/25 15:00 Temperature 98 F 97.8 F 97.6 F Pulse Rate Pulse Rate [Left Radial] 81 67 78 Respiratory Rate 17 18 18 Blood Pressure Blood Pressure [Left Arm] 100/59 97/60 100/60 O2 Sat by Pulse Oximetry 99 99 99 Oxygen Delivery Method Nasal Cannula Nasal Cannula Nasal Cannula Oxygen Flow Rate 2 2 2 FIO2% 08/14/25 16:00 08/14/25 16:50 08/14/25 17:00 Temperature 98 F 97.8 F Pulse Rate Pulse Rate [Left Radial] 78 65 Respiratory Rate 18 18 Blood Pressure Blood Pressure [Left Arm] 100/67 104/61 O2 Sat by Pulse Oximetry 99 98 Oxygen Delivery Method Nasal Cannula Nasal Cannula Room Air Oxygen Flow Rate 2 2 FIO2% 28 08/14/25 18:00 08/14/25 19:00 08/14/25 19:00 Temperature 97.8 F 98.2 F Pulse Rate Pulse Rate [Left Radial] 62 66 Respiratory Rate 18 18 Blood Pressure Blood Pressure [Left Arm] 108/67 101/60 O2 Sat by Pulse Oximetry 98 97 Oxygen Delivery Method Room Air Room Air Room Air Oxygen Flow Rate FIO2% 08/14/25 19:49 08/14/25 20:19 08/15/25 00:00 Temperature 99 F Pulse Rate Pulse Rate [Left Radial] 70 Respiratory Rate 18 18 20 Blood Pressure Blood Pressure [Left Arm] 103/56 O2 Sat by Pulse Oximetry 96 Oxygen Delivery Method Room Air Oxygen Flow Rate FIO2% 08/15/25 02:33 08/15/25 03:03 08/15/25 03:58 Temperature 99.0 F Pulse Rate Pulse Rate [Left Radial] 58 L Respiratory Rate 20 17 18 Blood Pressure Blood Pressure [Left Arm] 115/57 O2 Sat by Pulse Oximetry 96 Oxygen Delivery Method Room Air Oxygen Flow Rate FIO2% 08/15/25 07:00 08/15/25 07:33 08/15/25 07:39 Temperature 98.3 F Pulse Rate Pulse Rate [Left Radial] 60 Respiratory Rate 19 18 Blood Pressure Blood Pressure [Left Arm] 128/61 O2 Sat by Pulse Oximetry 96 Oxygen Delivery Method Room Air Room Air Oxygen Flow Rate FIO2% 08/15/25 08:20 Temperature Pulse Rate Pulse Rate [Left Radial] Respiratory Rate Blood Pressure Blood Pressure [Left Arm] O2 Sat by Pulse Oximetry Oxygen Delivery Method Room Air Oxygen Flow Rate FIO2% Labs: Laboratory Last Values WBC 18.7 X10^3/uL (3.6-10.0) H 08/15/25 04:40 RBC 4.57 X10^6/uL (4.7-6.0) L 08/15/25 04:40 Hgb 14.1 g/dL (13.5-18.0) D 08/15/25 04:40 Hct 41.1 % (42.0-54.0) L 08/15/25 04:40 MCV 89.8 fL (80.0-100.0) 08/15/25 04:40 MCH 30.8 pg (27.0-34.0) 08/15/25 04:40 MCHC 34.3 g/dL (33.0-35.0) 08/15/25 04:40 RDW 13.2 % (11.6-16.5) 08/15/25 04:40 Plt Count 287 X10^3/uL (150.0-450.0) 08/15/25 04:40 Plt Count Comment Adequate (ADEQUATE) 08/14/25 07:13 MPV 9.2 fL (7.4-11.0) 08/15/25 04:40 Neut % (Auto) 75.0 % (42.0-75.0) 08/15/25 04:40 Lymph % (Auto) 17.9 % (21.0-51.0) L 08/15/25 04:40 [place] % (Auto) 5.8 % (0.0-13.0) 08/15/25 04:40 Eos % (Auto) 0.7 % (0.9-2.9) L 08/15/25 04:40 Baso % (Auto) 0.6 % (0.2-1.0) 08/15/25 04:40 Neut # (Auto) 14.1 x10^3/uL (2.2-4.8) H 08/15/25 04:40 Lymph # (Auto) 3.3 X10^3/uL (1.3-2.9) H 08/15/25 04:40 [place] # (Auto) 1.1 x10^3/uL (0.3-0.8) H 08/15/25 04:40 Eos # (Auto) 0.1 x10^3/uL (0.0-0.2) 08/15/25 04:40 Baso # (Auto) 0.1 X10^3/uL (0.0-0.1) 08/15/25 04:40 Absolute Nucleated RBC 0.1 /100WBC 08/15/25 04:40 Total Counted 100 08/14/25 07:13 Neutrophils % (Manual) 85 % (39-76) H 08/14/25 07:13 Band Neutrophils % 1 % (0-10) 08/14/25 07:13 Lymphocytes % (Manual) 13 % (13-43) 08/14/25 07:13 Monocytes % (Manual) 1 % (4-9) L 08/14/25 07:13 Plt Morphology Comment Normal (NORMAL) 08/14/25 07:13 RBC Morphology Normal (NORMAL) 08/14/25 07:13 PT 13.4 SECONDS (11.8-14.3) 08/14/25 07:13 INR Target Range - 08/14/25 07:13 INR 1.01 (0.8-1.3) 08/14/25 07:13 APTT 29.4 SECONDS (22.9-36.5) 08/14/25 07:13 PTT Comment - 08/14/25 07:13 Sodium 142 mmol/L (136-145) 08/15/25 04:40 Corrected Sodium TNP 08/15/25 04:40 Potassium 4.2 mmol/L (3.5-5.1) 08/15/25 04:40 Chloride 108 mmol/L (98-107) H 08/15/25 04:40 Carbon Dioxide 26.5 mmol/L (21-32) 08/15/25 04:40 BUN 9 mg/dL (7-18) 08/15/25 04:40 Creatinine 1.27 mg/dL (0.70-1.30) 08/15/25 04:40 Est GFR (MDRD) Af Amer > 60 (>60) 08/15/25 04:40 Est GFR (MDRD) Non-Af > 60 (>60) 08/15/25 04:40 Glucose 94 mg/dL (65-99) 08/15/25 04:40 Calcium 7.9 mg/dL (8.5-10.1) L 08/15/25 04:40 Corrected Calcium 8.8 mg/dL (8.5-10.1) 08/15/25 04:40 Magnesium 1.9 mg/dL (2.0-2.9) L 08/15/25 04:40 Total Bilirubin 0.60 mg/dL (0.2-1.0) 08/15/25 04:40 AST 48 Units/L (15-37) H 08/15/25 04:40 ALT 45 Units/L (12-78) 08/15/25 04:40 Alkaline Phosphatase 67 Units/L (46-116) 08/15/25 04:40 Total Protein 6.0 g/dL (6.4-8.2) L 08/15/25 04:40 Albumin 2.9 g/dL (3.4-5.0) L 08/15/25 04:40 Globulin 3.1 g/dL (2.5-4.5) 08/15/25 04:40 Albumin/Globulin Ratio 0.9 Ratio (1.1-2.1) L 08/15/25 04:40 Amylase 84 Units/L (25-115) 08/14/25 07:13 Lipase 46 Units/L (16-77) 08/14/25 07:13 Specimen Type Clean catch urine 08/14/25 18:54 Urine Color Yellow (YELLOW) 08/14/25 18:54 Urine Appearance Clear (CLEAR) 08/14/25 18:54 Urine pH 6.0 (5.0 - 8.0) 08/14/25 18:54 Ur Specific [place] 1.020 (1.000-1.030) 08/14/25 18:54 Urine Protein 2+ (NEGATIVE) 08/14/25 18:54 Urine Glucose (UA) Negative (NEGATIVE) 08/14/25 18:54 Urine Ketones Negative (NEGATIVE) 08/14/25 18:54 Urine Blood Negative (NEGATIVE) 08/14/25 18:54 Urine Nitrite Negative (NEGATIVE) 08/14/25 18:54 Urine Bilirubin Negative (NEGATIVE) 08/14/25 18:54 Urine Urobilinogen Normal (NORMAL) 08/14/25 18:54 Ur Leukocyte Esterase Negative (NEGATIVE) 08/14/25 18:54 Urine RBC 0-2 /HPF (0-3) 08/14/25 18:54 Urine WBC 0-2 /HPF (0-5) 08/14/25 18:54 Ur Squamous Epith Cells Few /HPF (NEGATIVE) 08/14/25 18:54 Urine Bacteria Negative /HPF (NEGATIVE) 08/14/25 18:54 Hyaline Casts Few /LPF (NEGATIVE) 08/14/25 18:54 Granular Casts Rare /LPF (NEGATIVE) 08/14/25 18:54 Ur Culture Indicated? No/not indicated 08/14/25 18:54 Reason For Visit: CHOLEYSTITIS Discharge Diagnosis All Active Problems (Updated 08/14/25 @ 14:11 by Urszula Murry MD) Dehydration (Acute) MU (acute kidney injury) (Acute) Gallbladder polyp (Acute) Cholelithiasis (Acute) Cholecystitis (Acute) Colon polyps (Acute) Plan of Treatment: Continue with present treatment and follow up plan. Pt is to keep follow up appointment as instructed and take medications as ordered. Discharge Medications Discharge Medications: No Known Drug Allergies Allergy (Verified 08/14/25 07:01) CONTINUE taking the following medications aspirin 81 mg chewable tablet 81 mg PO QDAY 08/14/25 [History] New Prescriptions ciprofloxacin HCl 500 mg tablet (Cipro) 500 mg PO Q12H #14 tabs 08/15/25 [Rx] Discharge Disposition Assessment: To home Discharge Plan Discharge Plan Hospital Course: Patient is a 49-year-old male with a past medical history of hyperlipidemia presented with right upper quadrant pain that started early this morning. He reports associated nausea. He did have a high-fat/greasy meal last night. ER workup included labs which showed elevated WBC, CTAP showed mild distention of gallbladder and fatty liver. He was treated with IV fluids, pain control and IV antibiotics. Dr. Jane was also consulted and recommended gallbladder ultrasound. Ultrasound showed cholelithiasis and gallbladder polyp. Patient was taken for cholecystectomy, tolerated well. His labs are monitored daily and electrolytes replaced as needed. He was tolerating p.o. intake and pain was well-controlled. JAMILA drain was removed and patient was stable for discharge. He will follow-up with PCP and Dr. Jane as scheduled. Patient Disposition: 01 HOME, SELF-CARE Condition: Stable Health Concerns: Post Hospitalization: new medications and changes needed to prevent readmission or further decline. Pt educated and given instructions on all concerns. Care Plan Goals: Problem: Pain/Alteration in Comfort Goal: Improve/ Resolve Pain; Achieve Pain Tolerance Instructions: Take pain medications as prescribed. Contact your primary care provider if your pain is unrelieved or worsens. Follow up with primary care provider as directed. Plan of Treatment: Continue with present treatment and follow up plan. Pt is to keep follow up appointment as instructed and take medications as ordered. Assessment: To home Prescription drug monitoring program results: PDMP reviewed and no concerns identified Prescriptions: New ciprofloxacin HCl [Cipro] 500 mg Tablet 500 mg PO Q12H Qty: 14 0RF Continued fenofibrate nanocrystallized 145 mg tablet 145 mg PO QDAY aspirin 81 mg Tablet,Chewable 81 mg PO QDAY Orders to Discharge Patient Discharge Orders: Discharge (Routine); Ordered 08/15/25 Ordered By: RODNEY SMART Follow ups/Referrals Follow ups/Referrals: RODNEY SMART [STAFF PHYSICIAN, MEDICAL] - 08/24/25 2:30 pm Instructions Instructions: Laparoscopic Cholecystectomy, Care After Stand Alone Forms: Excuse From Work or School, Find Help Web Site, Post Hospital Follow Up Care Print Language: EMIRATI
== END 2025-08-15 10:35 | disposition home or self-care (01) ==
LOC: ER 06:49 → INTOOBSV 09:20 → MED/SURG 09:20
PROVIDERS: ADMIT Internal Medicine; ATTEND Internal Medicine
DX: E78.5 Hyperlipidemia, unspecified; R16.0 Hepatomegaly, not elsewhere classified; K80.00 Calculus of gallbladder with acute cholecystitis without obstruction; N17.8 Other acute kidney failure; K66.0 Peritoneal adhesions (postprocedural) (postinfection); R05.8 Other specified cough; E86.0 Dehydration; Z01.810 Encounter for preprocedural cardiovascular examination; E83.42 Hypomagnesemia; R00.1 Bradycardia, unspecified; Z79.01 Long term (current) use of anticoagulants; K82.8 Other specified diseases of gallbladder; Z72.0 Tobacco use; R11.2 Nausea with vomiting, unspecified; R73.09 Other abnormal glucose; R10.84 Generalized abdominal pain; D72.828 Other elevated white blood cell count; K82.1 Hydrops of gallbladder